=== PATIENT | female | born 1975 | race Caucasian/White ===

== ENCOUNTER 2016-08-03 20:27 | Emergency (ER) | payer OTHER ==
[~2016-08-03] VITALS: Ht 172.7 cm; Wt 84.8 kg
[2016-08-03 20:28] VITALS: BP 132/89
[2016-08-03] MEDS ORDERED: LORA1TAB12 PO ×2 (20:35→21:44)
[2016-08-03] MEDS ORDERED: VENL75CA PO ×2 (20:36→21:44)
== END 2016-08-03 21:50 | disposition home or self-care (01) ==
LOC: M ED 21:25
DX: F41.1 Generalized anxiety disorder (principal); Z76.0 Encounter for issue of repeat prescription

== ENCOUNTER 2018-04-15 07:55 | Day surgery (SDC) | payer OTHER ==
[2018-04-15] MEDS ORDERED: PROPOFOL 200 MG/20 ML VIAL As Ordered (08:36)
[2018-04-15] MEDS ORDERED: ROCURONIUM BROMIDE 50 MG/5 ML VIAL As Ordered ×2 (08:36→10:42)
[2018-04-15] MEDS ORDERED: LIDOCAINE 2% INJ 100 MG/5 ML SDV (FOR ANES.) As Ordered (08:36)
[2018-04-15] MEDS ORDERED: dexameTHASONE 4 MG/ML 1ML VIAL (J1100) As Ordered (08:36)
[2018-04-15] MEDS ORDERED: ONDANSETRON 4MG/2ML VIAL (J2405) As Ordered ×2 (08:36→12:24)
[2018-04-15] MEDS: LR 1,000 ML IV ×2 (08:38→13:45)
[2018-04-15] MEDS ORDERED: fentaNYL 250 MCG/5 ML INJECTION (J3010) As Ordered (08:56)
[2018-04-15] MEDS ORDERED: MIDAZOLAM INJ 2 MG/2 ML VIAL (J2250) As Ordered (08:56)
[2018-04-15 08:57] LABS: CONTROL LINE UCG INT CTR LINE PRESENT; URINE PREG TEST NEGATIVE (NEGATIVE)
[2018-04-15] MEDS: ceFAZolin SOD 1 GM in D5W MINI-BAG PLUS 50 ML IV (09:27)
[2018-04-15] MEDS: BACITRACIN PWD 50,000 UNITS VIAL As Ordered (09:54)
[2018-04-15] MEDS ORDERED: ePHEDrine SULFATE 25 MG/5 ML(5MG/ML) SYRINGE As Ordered (10:50)
[2018-04-15] MEDS ORDERED: HYDROmorphone HCL 2 MG/ML 1ML VIAL (J1170) As Ordered (12:14)
[2018-04-15] MEDS ORDERED: KETOROLAC 60 MG/2 ML VIAL (J1885) As Ordered (12:24)
[2018-04-15] MEDS ORDERED: SUGAMMADEX SODIUM 500 MG/5 ML VIAL (BRIDION) As Ordered (12:39)
[2018-04-15] MEDS ORDERED: HYDROMORPHONE HCL 0.5 MG/ 0.5 ML SYRINGE (J1170 PER 1) IV (13:45)
[2018-04-15] MEDS: fentaNYL 100 MCG/2 ML INJECTION (J3010) IV ×4 (13:45→14:00)
[2018-04-15] MEDS: LR 500 ML IV (14:05)
[2018-04-15] MEDS: PERCOCET 5MG/325MG TAB PO ×3 (14:12→22:26)
[2018-04-15] MEDS: ONDANSETRON 4MG/2ML VIAL (J2405) IV ×2 (14:25→19:48)
[2018-04-15] MEDS ORDERED: METOPROLOL 5 MG/5 ML VIAL As Ordered (14:29)
[2018-04-15] MEDS: METOPROLOL 5 MG/5 ML VIAL IV ×3 (14:29→14:49)
[2018-04-16] MEDS ORDERED: PHENYLEPHRINE HCL 10 % OPHTH. SOL 5ML OS (07:00)
[2018-04-16] MEDS ORDERED: LIDOCAINE 3.5 % 1ML OPHTH TOPICAL GEL OU (07:00)
[2018-04-16] MEDS ORDERED: OFLOXACIN 0.3 % (OCUFLOX) OPTH SOL 5ML OS (07:00)
[2018-04-16] MEDS ORDERED: PHENYLEPHRINE 2.5% OPHTH SOL 2ML OS (07:00)
[2018-04-16] MEDS ORDERED: TROPICAMIDE 1% OPHTH SOLN 2ML OS (07:00)
[2018-04-16] MEDS ORDERED: BSS with VANC/TOB/EPI for EYE CASES IR (07:00)
[2018-04-16] MEDS ORDERED: CYCLOPENTOLATE 2% OPHTH SOLN 2ML BTL OS (07:00)
[2018-04-16] MEDS: PERCOCET 5MG/325MG TAB PO (07:28)
== END 2018-04-16 10:38 | disposition home or self-care (01) ==
LOC: M SDC 07:55 → M MSPAV 16:35
DX: N62 Hypertrophy of breast (principal); M54.6 Pain in thoracic spine; M54.2 Cervicalgia; R06.02 Shortness of breath; R51 Headache; R06.83 Snoring; Z91.018 Allergy to other foods; Z98.82 Breast implant status; Z72.0 Tobacco use
CPT/HCPCS: 19316

== ENCOUNTER 2018-06-17 14:24 | Emergency (ER) | payer OTHER ==
[~2018-06-17] VITALS: Ht 172.7 cm; Wt 88.6 kg
[~2018-06-17 14:24] MED LIST: EFFE150C2 PO; LORA1TAB12 PO; PERCOCET PO; PRENTAB55 PO; VENL75CA2 PO; WELL100T2 PO
[2018-06-17] MEDS ORDERED: DULO1CAP2 PO (14:33)
[2018-06-17 15:54] LABS: INFLUENZA A AMPLIFICATION NEGATIVE (NEGATIVE); INFLUENZA B AMPLIFICATION NEGATIVE (NEGATIVE)
[2018-06-17] MEDS ORDERED: ALBU17IN2 INH (16:16)
[2018-06-17 16:30] VITALS: BP 133/77
== END 2018-06-17 16:31 | disposition home or self-care (01) ==
LOC: M ED 14:24
DX: J20.5 Acute bronchitis due to respiratory syncytial virus (principal); F32.9 Major depressive disorder, single episode, unspecified; Z91.018 Allergy to other foods; Z79.899 Other long term (current) drug therapy

== ENCOUNTER 2018-06-28 00:03 | Emergency (ER) | payer OTHER ==
[~2018-06-28] VITALS: Ht 172.7 cm; Wt 88.6 kg
[~2018-06-28 00:03] MED LIST changes: +ALBU17IN2 INH; +DULO1CAP2 PO
[2018-06-28] MEDS ORDERED: LIDOCAINE VISCOUS 2% SOLN 15ML UDC SS ONE (00:30)
[2018-06-28] MEDS ORDERED: ADDE10TA PO (00:51)
[2018-06-28] MEDS ORDERED: DULO30CA PO (00:51)
[2018-06-28] MEDS ORDERED: ADDE10CA3 PO (00:51)
[2018-06-28 01:17] VITALS: BP 118/61
== END 2018-06-28 01:18 | disposition home or self-care (01) ==
LOC: M ED 00:03
DX: J02.8 Acute pharyngitis due to other specified organisms (principal); Z91.018 Allergy to other foods; Z79.899 Other long term (current) drug therapy

== ENCOUNTER 2018-10-28 09:23 | Day surgery (SDC) | payer OTHER ==
[~2018-10-28] VITALS: Ht 172.7 cm; Wt 82.7 kg
[~2018-10-28 09:23] MED LIST changes: +ADDE10CA3 PO; +ADDE10TA PO; +DULO30CA9 PO; +LIDOCAINE 1% MDV 20ML VIAL SQ PRN; +LR 1,000 ML IV ONE; +MOTR200T44 PO; +PROPOFOL 200 MG/20 ML VIAL As Ordered ONE
[2018-10-28] MEDS ORDERED: PROPOFOL 200 MG/20 ML VIAL As Ordered ONE (09:25)
[2018-10-28] MEDS ORDERED: LIDOCAINE 2% INJ 100 MG/5 ML SDV (FOR ANES.) As Ordered ONE (09:26)
[2018-10-28] MEDS ORDERED: ONDANSETRON 4MG/2ML VIAL (J2405) As Ordered ONE (09:26)
[2018-10-28] MEDS ORDERED: dexameTHASONE 4 MG/ML 1ML VIAL (J1100) As Ordered ONE (09:26)
[2018-10-28] MEDS ORDERED: MIDAZOLAM INJ 2 MG/2 ML VIAL (J2250) As Ordered ONE (09:26)
[2018-10-28] MEDS ORDERED: fentaNYL 100 MCG/2 ML INJECTION (J3010) As Ordered ONE (09:26)
[2018-10-28] MEDS ORDERED: ACETAMINOPHEN 1000MG 100ML IV BTL (OFIRMEV) (J0131 PER 10MG) As Ordered ONE (09:28)
[2018-10-28 10:43] LABS: URINE PREG TEST NEGATIVE (NEGATIVE)
[2018-10-28] MEDS ORDERED: METHYLENE BLUE 0.5% (5MG/ML) 10 ML AMP (PROVAYBLUE)(Q9968 PER 1MG) As Ordered ONE (10:52)
[2018-10-28] MEDS ORDERED: LIDOCAINE W/EPINEPHRINE 1% 20ML VIAL As Ordered ONE (10:52)
[2018-10-28] MEDS ORDERED: OXYMETAZOLINE NASAL SPRAY (AFRIN) As Ordered ONE (10:53)
[2018-10-28] MEDS ORDERED: SUGAMMADEX SODIUM 500 MG/5 ML VIAL (BRIDION) As Ordered ONE (12:19)
[2018-10-28] MEDS ORDERED: ROCURONIUM BROMIDE 50 MG/5 ML VIAL As Ordered ONE (12:42)
[2018-10-28] MEDS: PERCOCET 5MG/325MG TAB PO PRN ×2 (12:55→13:25)
[2018-10-28] MEDS ORDERED: METOCLOPRAMIDE INJ 10MG/2ML VIAL (J2765) IV PRN (13:00)
[2018-10-28] MEDS ORDERED: ONDANSETRON 4MG/2ML VIAL (J2405) IV PRN (13:00)
[2018-10-28] MEDS ORDERED: MEPERIDINE INJ 25 MG/ML VIAL (J2175) IV PRN (13:00)
[2018-10-28] MEDS ORDERED: PERCOCET 5MG/325MG TAB PO PRN (13:00)
[2018-10-28] MEDS ORDERED: fentaNYL 100 MCG/2 ML INJECTION (J3010) IV PRN (13:00)
[2018-10-28] MEDS ORDERED: IBUPROFEN 800 MG TAB PO PRN (13:00)
[2018-10-28] MEDS ORDERED: LR 1,000 ML IV SCH (13:00)
[2018-10-28 13:46] VITALS: BP 109/67
--- NOTE | 2018-10-29 08:35 | RO ---
DATE OF PROCEDURE: 10/28/2018 PREOPERATIVE DIAGNOSES: Nasal septal deviation. Chronic rhinitis. POSTOPERATIVE DIAGNOSES: Nasal septal deviation. Chronic rhinitis. PROCEDURE: Septoplasty. Partial reduction of inferior turbinates. SURGEON: Dr. Lonny Chairez. [employer] OPERATOR: ANESTHESIA: INDICATION: This is a 43-year-old with a long history of nasal obstruction. DESCRIPTION OF PROCEDURE: Satisfactory general endotracheal anesthesia administered. The nose was prepared for surgery by placing cotton-soaked pledgets with Afrin solution to nasal cavity bilaterally. 1% Xylocaine with 1:100,000 epinephrine was used to inject into the nasal septum and inferior turbinates. A Red Devil incision was made on the left side of the nose. A mucoperichondrial flap and envelope was created on the left side of the nasal septum and carried down to the junction of the bony and cartilaginous septum. This was then with an elevator, and an envelope was then created on the right side of the septum. A Earline scissors was used to make a cut high in the perpendicular plate in the midportion of the vomer, and a central segment of the bony septum was resected. Next, with the round knife on the Sebastian elevator, a strip of cartilage was resected from the floor of the nose, mobilizing the quadrilateral cartilage and creating a swinging door. Then, a central segment of cartilaginous septum was resected, preserving a 1 cm dorsal and caudal strut. Double-action rongeur was used to take down deflected portions of the perpendicular plate, as well. Finally, the maxillary crest spur was taken down after elevating mucoperiosteum off both sides of it with a chisel. A segment of the resected cartilage was morselized and placed back into the septal envelope. The incision was closed using an interrupted #5-0 chromic suture. Then, a #4-0 plain suture was placed in a [id number]-[id number] fashion through the two leaves of mucoperichondrium to appose them. Next, the inferior turbinates were medially infractured. A #15 blade was used to make an incision on the anterior tip of the inferior turbinate. With a Sebastian elevator, a mucoperiosteal tunnel was created on the medial side of the turbinate. Then, the microdebrider with a 2.9 mm blade was inserted into the tunnel, and the underlying turbinate bone was weakened and partially resected using the microdebrider. Then, the turbinate was laterally outfractured. The posteroinferior tip of the turbinate was then cauterized with suction cautery. Finally, Dye splints were placed into the nose and sewn to the columella with a #2-0 Prolene suture. The pharyngeal pack, which had been placed at the beginning of the procedure was removed, the throat was suctioned. The patient was then awakened, extubated, and sent to recovery in satisfactory condition.
== END 2018-10-28 15:00 | disposition home or self-care (01) ==
LOC: M SDC 09:23
PROVIDERS: ATTEND Specialist
DX: J34.2 Deviated nasal septum (principal); J31.0 Chronic rhinitis; F32.9 Major depressive disorder, single episode, unspecified; R06.02 Shortness of breath; R06.83 Snoring; Z79.899 Other long term (current) drug therapy
CPT/HCPCS: 30140; 30520; 84703; 88300; J0131; J1100; J2250; J2405; J3010; Q9968